=== PATIENT | male | born 1985 | race Two or more races ===

== ENCOUNTER 2016-05-08 00:13 | Observation (INO) | payer MEDICAID, OTHER ==
[~2016-05-08] VITALS: Ht 172.7 cm; Wt 83.9 kg
[2016-05-08 00:59] LABS: DEFINITIVE VIEW TRANSMISSION; Hematocrit 47.9 % (41.0-53.0); Mean Corpuscular Hgb Conc. 33.3 g/dL (32.0-36.0); Mean Platelet Volume 7.6 fL (7.4-10.4); Platelet Count (auto) 253 10^3/uL (140-450); SUSPECT VIEW TRANSMISSION
[2016-05-08 01:07] LABS: Metamyelocytes % 0; Myelocytes % 0; Promyelocytes % 0; Reactive Lymphocytes 0
[2016-05-08 01:20] LABS: Albumin 4.2 g/dL (3.4-5.0); BUN/Creatinine Ratio 11.1; Calcium 8.9 mg/dL (8.5-10.1); Potassium 3.8 mmol/L (3.5-5.1); Salicylate < 1.7 mg/dL (2.8-20.0)
[2016-05-08 01:22] LABS: Acetaminophen < 2.0 ug/mL (10-30)
[2016-05-08 01:23] LABS: Total Protein 7.9 g/dL (6.4-8.2)
[2016-05-08 01:53] LABS: Hypersegmented Neutrophils Present; Platelet Estimate Adequate; RBC Morphology Normal
[2016-05-08] MEDS ORDERED: ONDANSETRON HCL 4 MG/2 ML VIAL IV ONE (04:30)
[2016-05-08] MEDS ORDERED: SODIUM CHLORIDE 0.9% 1,000 ML IV ONE (04:30)
[2016-05-08 05:26] LABS: Urine Bilirubin Negative (Negative); Urine Color PINK (Yellow); Urine Glucose Normal (Normal); Urine Mucus MANY (None Seen); Urine RBC 1 /hpf (0 - 3); Urine Urobilinogen Normal (Negative); Urine pH 5.5 (5.0-8.0)
[2016-05-08 05:27] LABS: Urine Blood 1+ /uL (Negative); Urine Ketone 2+ (Negative); Urine Nitrite POSITIVE (Negative)
[2016-05-08] MEDS ORDERED: ALUM & MAG HYDROX-SIMETH LIQ(MAALOX) 30 ML PO ONE (05:45)
[2016-05-08] MEDS ORDERED: cefTRIAXone 1GM/50ML D5W 50 ML IV ONE (05:45)
[2016-05-08] MEDS ORDERED: LIDOCAINE VISCOUS 2% 15ML UD PO ONE (05:45)
[2016-05-08] MEDS ORDERED: DONNATAL 5ml ORAL Elix (BELLADONNA ALK-PHENOBARB) PO ONE (05:45)
[2016-05-08 15:22] VITALS: BP 116/56
== END 2016-05-08 15:33 | disposition short-term general hospital (02) | DRG 756 ==
LOC: ER 00:13 → OVERFLOW 10:00 → ER 15:33
PROVIDERS: ADMIT Emergency Medicine; ATTEND Emergency Medicine
DX: R45.851 Suicidal ideations (principal); F32.9 Major depressive disorder, single episode, unspecified; R11.2 Nausea with vomiting, unspecified; F41.9 Anxiety disorder, unspecified; F17.210 Nicotine dependence, cigarettes, uncomplicated
CPT/HCPCS: 36415; 71010; 80053; 80329; 81001; 85007; 85027; 93005; 96361; 96365; 96375; 99285; G0378; G0434; J0696; J2405; J7030